=== PATIENT | male | born 1970 | race Caucasian/White ===

== ENCOUNTER 2016-09-28 15:04 | Emergency (ER) | payer SELFPAY ==
[~2016-09-28] VITALS: Ht 177.8 cm; Wt 106.8 kg
[2016-09-28] MEDS ORDERED: PREDNISONE20 MG PO (17:56)
[2016-09-28] MEDS ORDERED: TESSALON PERLE100 MG PO (17:56)
[2016-09-28 18:11] VITALS: BP 140/101
== END 2016-09-28 18:16 | disposition home or self-care (01) ==
LOC: EME 15:04
DX: J40 Bronchitis, not specified as acute or chronic (principal); R05 Cough; F17.200 Nicotine dependence, unspecified, uncomplicated
CPT/HCPCS: 71020; 99281; 99283; J1100